=== PATIENT | male | born 1940 | race Caucasian/White ===

== ENCOUNTER → 2023-04-12 | Outpatient (CLI) | payer MEDICARE ==
[2023-04-12 18:44] LABS: HCT 33.1 % (39.6-50.0); HGB 10.8 g/dL (13.0-17.0); MCH 35.5 pg (27.0-32.0); MCHC 32.6 g/dL (32.0-37.0); MCV 108.9 FL (80.0-97.0); Mean Platelet Volume 11.9 FL (9.5-12.2); NRBC Per 100 WBC 0.02 X 10*3/uL (0.00-0.01); Platelet Count 190 X 10*3/uL (140-440); RBC 3.04 X 10*6/uL (4.40-5.60); RDW 18.5 % (11.5-14.5); WBC 3.62 X 10*3/uL (4.50-10.00)
[2023-04-12 20:41] LABS: Blood Urea Nitrogen 15.4 mg/dL (9.0-27.0); Carbon Dioxide 23.9 mmol/L (21.6-31.8); Chloride 108 mmol/L (96-109); Potassium 4.7 mmol/L (3.5-5.5); Sodium 142 mmol/L (135-145)
== END | disposition home or self-care (01) ==
LOC: LABPAT 11:25
PROVIDERS: ATTEND Internal Medicine Clinical Cardiac Electrophysiology
DX: Z01.812 Encounter for preprocedural laboratory examination (principal); I48.0 Paroxysmal atrial fibrillation
CPT/HCPCS: 80051; 82565; 84520; 85027

== ENCOUNTER 2023-04-26 05:46 | Day surgery (SDC) | payer MEDICARE ==
[2023-04-21 12:14] VITALS: BMI 25.5
[2023-04-26] MEDS: SODIUM CHLORIDE 0.9% 1,000 ML IV ONE (06:36)
[2023-04-26] MEDS ORDERED: ePHEDrine 50 MG/ML 1 ML VIAL ONE (07:28)
[2023-04-26] MEDS ORDERED: PHENYLEPHRINE-0.9% NACL SYG 1,000 MCG/10 ML SYRINGE ONE (07:28)
[2023-04-26] MEDS ORDERED: HEPARIN SODIUM,PORCINE 10,000 UNIT/ML 1 ML VIAL ONE (07:28)
[2023-04-26] MEDS ORDERED: LIDOCAINE 1% INJ 10MG/ML (20 ML MDV) ONE ×2 (07:28→07:56)
[2023-04-26] MEDS ORDERED: fentaNYL (PF) 50 MCG/ML 2 ML AMP ONE (07:28)
[2023-04-26] MEDS ORDERED: SUCCINYLCHOLINE CHLORIDE 200 MG/10 ML VIAL IV ONE (07:28)
[2023-04-26] MEDS ORDERED: PROPOFOL 10 MG/ML 20 ML VIAL IV ONE (07:28)
[2023-04-26] MEDS: HEPARIN SOD,PORK IN 0.45% NACL 25,000 UNIT in 0.45% NACL 1 250ML.BAG IV ONE (07:53)
[2023-04-26] MEDS: LIDOCAINE 1% INJ 10MG/ML (20 ML MDV) SQ ONE (08:02)
[2023-04-26 08:14] LABS: ALT 29 U/L (4-49); AST 43 U/L (17-59); African American GFR (CKD) 69 (>60 ml/min/1.73 sqM); Albumin 4.2 g/dL (3.5-5.0); Alkaline Phosphatase 73 U/L (38-126); Anion Gap 10 mmol/L; Blood Urea Nitrogen 21 mg/dL (9-20); Calcium 9.6 mg/dL (8.4-10.2); Carbon Dioxide 24 mmol/L (22-30); Chloride 108 mmol/L (98-107); Glucose 129 mg/dL (74-99); Non-African American GFR(CKD) 60 (>60 ml/min/1.73 sqM); Potassium 4.6 mmol/L (3.5-5.1); Sodium 142 mmol/L (137-145); Total Protein 7.3 g/dL (6.3-8.2)
[2023-04-26] MEDS: IOPAMIDOL-370 100ML BTL INJ ONE (09:47)
--- NOTE | 2023-04-26 10:06 | P.HPCAR ---
History of Present Illness This is Dr. Ham dictating an H/P on this patient The patient was interviewed and examined IMPRESSION / ASSESSMENT: Persistent symptomatic atrial fibrillation with tiredness fatigue and shortness of breath Has failed flecainide and Multaq Normal LV function PLAN: A-fib ablation Continue anticoagulation HPI Remains very short of breath with tiredness fatigue and palpitations He has a preserved LV systolic function and yet is quite short of breath during atrial fibrillation He has failed flecainide and Multaq both ROS: No fever chills or rigors, no cough, phlegm or expectoration, no nausea, vomiting or diarrhea, no hematuria, dysuria, no musculoskeletal complaints, no strokes or seizures, no skin lesions. EXAMINATION: No JVD no hepatojugular reflux Normal heart sounds regular no murmurs Breath sounds are clear No rhonchi no crackles No lower extremity edema REVIEW OF LABS, ECG & MEDICAL DATA Past history of CAD Normal LV function Physical Exam Vitals: Vital Signs Temp Pulse Resp BP Pulse Ox 04/26/23 06:37 97 F L 72 16 109/70 96 Intake and Output 04/25/23 04/26/23 04/26/23 22:59 06:59 14:59 Intake Total 50 727 Balance 50 727 Intake: IV 50 727 Other: Weight 79.8 kg Past Medical History Past Medical History: Atrial Fibrillation, GERD/Reflux, Hyperlipidemia, Hypertension, Osteoarthritis (OA) Additional Past Medical History / Comment(s): RECENT: SOB Pt states SOB with all day and it has gotten worse lately,(POSTITIVE STRESS TEST). MACROCYTIC ANEMIA, please see Dr. Ham's H+P, Pt states difficulty urinating. History of Any Multi-Drug Resistant Organisms: None Reported Past Surgical History: Heart Catheterization, Orthopedic Surgery Additional Past Surgical History / Comment(s): ORTHO: RIGHT SHOULDER (ACCIDENT), LEFT ROTATOR CUFF, LEFT KNEE ARTHRO, COLONOSCOPY, Cardiac cath "was a few years ago." Past Anesthesia/Blood Transfusion Reactions: No Reported Reaction Smoking Status: Former smoker - Past Family History Mother Family Medical History: Neurologic Disorder Additional Family Medical History / Comment(s): ALZHEIMERS Physical Examination Vital Signs Temp Pulse Resp BP Pulse Ox 04/26/23 06:37 97 F L 72 16 109/70 96 Intake and Output 04/25/23 04/26/23 04/26/23 22:59 06:59 14:59 Intake Total 50 727 Balance 50 727 Intake: IV 50 727 Other: Weight 79.8 kg Results 04/26/23 06:12 Cardiac Enzymes 04/26/23 Range/Units 06:12 AST 43 (17-59) U/L Comprehensive Metabolic Panel 04/26/23 Range/Units 06:12 Sodium 142 (137-145) mmol/L Potassium 4.6 (3.5-5.1) mmol/L Chloride 108 H (98-107) mmol/L Carbon Dioxide 24 (22-30) mmol/L BUN 21 H (9-20) mg/dL Creatinine 1.16 (0.66-1.25) mg/dL Glucose 129 H (74-99) mg/dL Calcium 9.6 (8.4-10.2) mg/dL AST 43 (17-59) U/L ALT 29 (4-49) U/L Alkaline Phosphatase 73 (38-126) U/L Total Protein 7.3 (6.3-8.2) g/dL Albumin 4.2 (3.5-5.0) g/dL Current Medications Generic Name Dose Route Start Last Admin Trade Name Freq PRN Reason Stop Dose Admin Sodium Chloride 1,000 mls @ 20 mls/hr 04/26/23 05:51 Saline 0.9% IV 05/26/23 05:52 .Q24H SIVA Lactated Ringer's 1,000 mls @ 20 mls/hr 04/26/23 05:51 Lactated Ringers IV 05/26/23 05:52 .Q24H SIVA Intake and Output 04/25/23 04/26/23 04/26/23 22:59 06:59 14:59 Intake Total 50 727 Balance 50 727 Intake: IV 50 727 Other: Weight 79.8 kg 04/26/23 06:12
--- NOTE | 2023-04-26 10:10 | P.EPPROC ---
- EP Procedure Note Electrophysiology Procedure Note: PROCEDURE A. fib ablation with PVI and linear ablation of the left atrial roof DIAGNOSIS Persistent atrial fibrillation, symptomatic, refractory to therapy despite 2 different drugs RESULT No left atrial appendage mass seen on intracardiac echo, large left atrial appendage, preserved LV systolic function Successful A. fib ablation/pulmonary vein isolation of all veins using cryo- ablation Complete entrance block in all 4 veins confirmed Linear ablation of the left atrial roof with cryoablation resulted in termination of atrial fibrillation to sinus rhythm, mid roof No evidence for phrenic nerve injury Esophageal deflection YES, right-sided esophagus PROCEDURE DETAILS Written informed consent prior to procedure. Patient brought to the EP lab. General anesthesia given. Heparin administered. A city maintained above 300 seconds Both groins prepped and draped per protocol and venous sheaths placed. Esophagus intubated, circa catheter for temperature monitoring an endoscope for possible esophageal deflection. Phrenic nerve monitoring performed. Esophageal temperature monitoring performed. Esophageal deflection performed if circa catheter overlapping with the balloon or circa temperature less than 27.5C Intracardiac echocardiography performed. Pericardium evaluated. Left atrial appendage evaluated. Left atrium evaluated along with pulmonary veins Transseptal catheterization performed under fluoroscopic guidance and intracardiac echo guidance Cryoablation sheath exchanged, balloon catheter along with achieve catheter placed in the left atrium. Pulmonary veins isolated in the following sequence: Left superior pulmonary vein followed by left inferior pulmonary vein, followed by right inferior pulmonary vein and lastly right superior pulmonary vein. Phrenic nerve stimulation along with capture thresholds within the SVC and right superior pulmonary vein to identify the phrenic nerve proximity to the cryo- balloon. Pulmonary veins isolated and confirmed with entrance and exit block. Phrenic nerve integrity confirmed at the end of the procedure Ablation of the left atrial roof performed with sequential lesions from the left superior to the right superior pulmonary veins. When the final cryoablation was applied and the roof, termination of atrial fibrillation occurred Diagnostic catheters for the high right atrium, His bundle, coronary sinus placed. LA and RA pressures recorded RA pressure: 105/7 LA pressure: 17/3/10 Diagnostic EP study with coronary sinus pacing and recording after termination of atrial fibrillation during roofline Baseline measurements: Sinus cycle length 840 ms, ID interval 198 ms, QRS 159 ms with a right bundle branch block morphology and QT interval 476 ms AH 95 and HV 43 ms Venous sheaths were removed and hemostasis assured with a closure device. Patient extubated and transferred to recovery PROCEDURES PERFORMED Diagnostic EP study CS pacing and recording Left and right transseptal catheterization Catheter the mapping of the tachycardia Intracardiac echocardiography Pulmonary vein isolation with transseptal and comprehensive EPS, [id number] Left atrial roof line, +[id number]
[2023-04-26] MEDS: ACETAMINOPHEN IV (For NPO) 1,000 MG/100 ML VIAL IVPB ONE (11:50)
[2023-04-26] MEDS: ONDANSETRON 4 MG/2 ML VIAL IVP ONE (11:52)
[2023-04-26] MEDS: ACETAMINOPHEN IV (For NPO) 1,000 MG in EMPTY BAG 1 BAG IVPB ONE (13:49)
[2023-04-26] MEDS: SODIUM CHLORIDE 0.9% 500 ML 250 ML IV ONE (14:54)
[2023-04-26] MEDS: SODIUM CHLORIDE 0.9% 1,000 ML IV SCH (19:36)
[2023-04-26] MEDS: LACTATED RINGERS 1,000 ML IV SCH (19:36)
[2023-04-26] MEDS: ATORVASTATIN 40 MG TAB PO SCH (21:03)
[2023-04-27] MEDS: ACETAMINOPHEN TAB 325 MG TAB PO PRN (01:12)
[2023-04-27 07:47] VITALS: BP 126/76; PULSE 74; RESP 20; TEMP 97.7
[2023-04-27] MEDS: METOPROLOL TARTRATE 12.5 MG TAB PO SCH (08:51)
[2023-04-27] MEDS: TAMSULOSIN 0.4 MG CAP.ER.24H PO SCH (08:51)
[2023-04-27] MEDS: RIVAROXABAN 20 MG TAB PO SCH (08:57)
--- NOTE | 2023-04-27 10:33 | P.DS ---
Providers Attending physician: Victor Hugo Ham Primary care physician: [facility] Course: Patient is doing well No dizziness lightheadedness Lungs are clear no rhonchi no crackles Normal heart sounds normal S1 normal S2 Abdomen is soft Groins of healed well Impression Persistent symptomatic atrial fibrillation Status post ablation of the pulmonary veins and left atrial roof Termination of atrial fibrillation during ablation of the left atrial roof Currently on Xarelto 20 mg p.o. daily and low-dose beta-blockers along with atorvastatin Known CAD status post stenting in the past Low normal LV systolic function Plan in view of the interaction with Multaq and Xarelto I will hold Multaq for now He will see Dr. Baldwin in the next 7 to 10 days and we will monitor him for any recurrence of atrial fibrillation Stable for discharge today Plan - Discharge Summary Discharge Rx Participant: No New Discharge Prescriptions: No Action Atorvastatin [Lipitor] 40 mg PO HS Metoprolol Tartrate 12.5 mg PO BID Multivitamins, Thera [Multivitamin] 1 tab PO DAILY Omeprazole [PriLOSEC] 20 mg PO QAM Tamsulosin [Flomax] 0.4 mg PO DAILY Rivaroxaban [Xarelto] 20 mg PO DAILY Dronedarone [Multaq] 400 mg PO AC-BID Acetaminophen [Tylenol Extra Strength] 1,000 mg PO Q8H PRN PRN Reason: Pain Discharge Medication List Atorvastatin [Lipitor] 40 mg PO HS 08/15/15 [History] Metoprolol Tartrate 12.5 mg PO BID 08/15/15 [History] Multivitamins, Thera [Multivitamin] 1 tab PO DAILY 08/15/15 [History] Omeprazole [PriLOSEC] 20 mg PO QAM 08/15/15 [History] Dronedarone [Multaq] 400 mg PO AC-BID 04/10/22 [History] Tamsulosin [Flomax] 0.4 mg PO DAILY 04/10/22 [History] Acetaminophen [Tylenol Extra Strength] 1,000 mg PO Q8H PRN 04/21/23 [History] Rivaroxaban [Xarelto] 20 mg PO DAILY 04/21/23 [History] Follow up Appointment(s)/Referral(s): Wesley Baldwin MD [STAFF PHYSICIAN] - 05/05/23 2:15 pm (Appointment made with Bridgett ) Cisco Pedraza DO [Primary Care Provider] - 05/21/23 Patient Instructions/Handouts: How to Use an Incentive Spirometer (DC)
== END 2023-04-27 11:45 | disposition home or self-care (01) ==
LOC: CATHEP 05:46 → 6NMEDSUR 09:47 → CATHEP 04-27 11:45
PROVIDERS: ATTEND Internal Medicine Clinical Cardiac Electrophysiology
DX: I48.19 Other persistent atrial fibrillation (principal); I25.10 Atherosclerotic heart disease of native coronary artery without angina pectoris; M19.90 Unspecified osteoarthritis, unspecified site; E78.5 Hyperlipidemia, unspecified; I10 Essential (primary) hypertension; K21.9 Gastro-esophageal reflux disease without esophagitis; D53.9 Nutritional anemia, unspecified; Z98.890 Other specified postprocedural states; Z87.891 Personal history of nicotine dependence; Z79.899 Other long term (current) drug therapy
CPT/HCPCS: 93656; 93657; 86900; 86901; 80053; 84443; 86850; C1894 ×2; C1769 ×3; C1760; C1730 ×2; C1759; C1893; C1733; C1766; J2405; J2001; J0131; Q9967; J1644

== ENCOUNTER 2024-01-12 07:20 | Day surgery (SDC) | payer MEDICARE ==
[~2024-01-12 07:20] MED LIST: LIDOCAINE 1% (10MG/ML) FOR IV START INTRADERMA PRN
[2024-01-12 07:53] VITALS: TEMP 97.6
[2024-01-12] MEDS: LACTATED RINGERS 1,000 ML IV SCH (07:57)
[2024-01-12] MEDS: IV FLUID CONTINUATION 1,000 ML IV ONE (07:57)
[2024-01-12] MEDS ORDERED: PROPOFOL 10 MG/ML 20 ML VIAL IV ONE (08:34)
--- NOTE | 2024-01-12 09:04 | P.PCN ---
Date of Procedure: 01/12/24 Procedure(s) Performed: BRIEF HISTORY: Patient is a 83-year-old pleasant white male scheduled for an elective colonoscopy as a part of evaluation positive Cologuard/screening for colon cancer. PROCEDURE PERFORMED: Colonoscopy with snare polypectomy. PREOPERATIVE DIAGNOSIS: Positive Cologuard/screening for colon cancer. IV sedation per Anesthesia. PROCEDURE: After informed consent was obtained, the patient, was brought into the endoscopy unit. IV sedation was administered by Anesthesia under continuous monitoring. Digital rectal examination was normal. Initially the Olympus CF-160 flexible video colonoscope was then inserted in the rectum, gradually advanced into the cecum without any difficulty. Careful examination was performed as the scope was gradually being withdrawn. Ileocecal valve and the appendiceal orifice were visualized and appeared normal. Prep was excellent. Mucosa of the cecum, ascending colon, appeared normal. In the hepatic flexure there was a 2 cm broad-based polyp removed by snare polypectomy. In the transverse colon there was a 1 cm and 1.5 cm broad-based polyp removed by snare polypectomy. Rest of the transverse colon, descending colon, sigmoid colon, and rectum appeared normal. Scattered sigmoid diverticulosis. Retroflexion was performed in the rectum and grade 2 internal were seen. The patient tolerated the procedure well. IMPRESSION: 2 cm broad-based hepatic rectal polyp status post snare polypectomy 1 cm and 1.5 cm broad-based transverse colon polyp status post polypectomy Scattered sigmoid diverticulosis Grade 2 internal hemorrhoids RECOMMENDATIONS: Findings of this examination were discussed with the patient as well as his family. He was advised to follow-up with the biopsy results. If the biopsy reveals adenoma he can have repeat colonoscopy in 3 years..
[2024-01-12 09:31] VITALS: BP 116/71; PULSE 66; RESP 20
== END 2024-01-12 09:35 | disposition home or self-care (01) ==
LOC: ORWHC2ENDO 07:20
PROVIDERS: ATTEND Internal Medicine Gastroenterology
DX: Z12.11 Encounter for screening for malignant neoplasm of colon (principal); D12.3 Benign neoplasm of transverse colon; R19.5 Other fecal abnormalities; K57.30 Diverticulosis of large intestine without perforation or abscess without bleeding; K64.1 Second degree hemorrhoids; Z79.899 Other long term (current) drug therapy
CPT/HCPCS: 88305; 45385; J2704

== ENCOUNTER → 2024-07-08 | Outpatient (CLI) | payer MEDICARE ==
[2024-07-08 14:06] LABS: HCT 33.2 % (39.6-50.0); HGB 10.6 g/dL (13.0-17.0); MCH 34.2 pg (27.0-32.0); MCHC 31.9 g/dL (32.0-37.0); MCV 107.1 FL (80.0-97.0); Mean Platelet Volume 12.2 FL (9.5-12.2); NRBC Per 100 WBC 0.02 X 10*3/uL (0.00-0.01); Platelet Count 170 X 10*3/uL (140-440); RDW 19.9 % (11.5-14.5)
[2024-07-08 14:21] LABS: ALT 19 U/L (10-49); AST 24 U/L (14-35); Albumin 4.2 g/dL (3.8-4.9); Albumin/Globulin Ratio 1.83 Ratio (1.60-3.17); Alkaline Phosphatase 69 U/L (41-126); Blood Urea Nitrogen 16.7 mg/dL (9.0-27.0); Calcium 9.4 mg/dL (8.7-10.3); Carbon Dioxide 27.1 mmol/L (21.6-31.8); Chloride 104 mmol/L (96-109); Globulin 2.3 g/dL (1.6-3.3); Glucose 107 mg/dL (70-110); Potassium 4.3 mmol/L (3.5-5.5); Sodium 141 mmol/L (135-145); Total Bilirubin 1.1 mg/dL (0.3-1.2); Total Protein 6.5 g/dL (6.2-8.2)
[2024-07-08 15:52] LABS: Basophils # (A) 0 X 10*3/uL (0.00-0.10); Basophils % (A) 0 %; Elliptocytes 2+ (None Seen); Eosinophils # (A) 0 X 10*3/uL (0.04-0.35); Eosinophils % (A) 0 %; Lymphocytes # (A) 0.73 X 10*3/uL (0.90-5.00); Lymphocytes % (A) 25.2 %; Macrocytosis (M) 2+ (None Seen); Monocytes % (A) 13.8 %; Neutrophils # (A) 1.75 X 10*3/uL (1.80-7.70); Neutrophils % (A) 60.3 %
== END | disposition home or self-care (01) ==
LOC: LABWHC1 10:23
PROVIDERS: ATTEND Physician Assistant
DX: R53.1 Weakness (principal)
CPT/HCPCS: 36415; 80053; 85025

== ENCOUNTER 2024-09-14 21:57 | Inpatient (IN) | payer MEDICARE ==
--- NOTE | 2024-09-14 22:46 | ED ---
General Adult HPI - General Chief complaint: Recheck/Abnormal Lab/Rx Stated complaint: Abnormal Labs Time Seen by Provider: 09/14/24 22:07 Source: patient Mode of arrival: ambulatory Limitations: no limitations - History of Present Illness Initial comments: This patient is an 84-year-old man who states that he received a phone call telling him he should be evaluated in the emergency department. This was in relation to an MRI that he had had earlier in the day. The patient and explained that they had been concerned about the possibility of developing dementia and therefore they had seen the neurologist who had ordered the MRI. They went for that test and then had gone home and received a call telling them to come to the emergency department. The patient is denying any new neurologic symptoms. He is denying focal weakness, numbness, change in vision, speech, swallowing. Patient reported with history of previous A-fib currently taking Xarelto. Review of the records shows that the patient did have MRI today interpreted as showing few bilateral frontal area areas of concern for possible acute/subacute embolic events. Onset/Timin -: hour(s) Improves with: none Worsens with: none Associated Symptoms: denies other symptoms Treatments Prior to Arrival: none - Related Data Home Medications Medication Instructions Recorded Confirmed Atorvastatin [Lipitor] 40 mg PO HS 08/15/15 09/15/24 Multivitamins, Thera [Multivitamin 1 tab PO DAILY 08/15/15 09/15/24 (formulary)] Tamsulosin [Flomax] 0.4 mg PO HS 04/10/22 09/15/24 Epoetin Julian [Procrit] 40,000 unit INJ Q14D 09/15/24 09/15/24 Mirtazapine [Remeron] 15 mg PO HS 09/15/24 09/15/24 Omeprazole Magnesium [PriLOSEC OTC] 20 mg PO DAILY 09/15/24 09/15/24 Previous Rx's Medication Instructions Recorded Apixaban [Eliquis] 5 mg PO BID #90 tab 09/16/24 Psyllium Husk 100% [Metamucil 6 gm PO BID #60 packet 09/16/24 Packet] Allergies Allergy/AdvReac Type Severity Reaction Status Date / Time No Known Allergies Allergy Verified 09/15/24 09:47 Review of Systems ROS Statement: Those systems with pertinent positive or pertinent negative responses have been documented in the HPI. ROS Other: All systems not noted in ROS Statement are negative. Constitutional: Denies: fever, chills, weakness Eyes: Denies: vision change ENT: Denies: hearing loss Respiratory: Denies: cough, dyspnea Cardiovascular: Denies: chest pain, palpitations, edema, syncope Gastrointestinal: Denies: abdominal pain, vomiting, diarrhea Genitourinary: Denies: dysuria, hematuria Musculoskeletal: Denies: back pain Skin: Denies: rash Neurological: Reports: confusion (Intermittent). Denies: headache, weakness, numbness Past Medical History Past Medical History: Atrial Fibrillation, GERD/Reflux, Hyperlipidemia, Osteoarthritis (OA) Additional Past Medical History / Comment(s): RECENT: SOB, ESPECIALLY AT NIGHT (POSTITIVE STRESS TEST). MACROCYTIC ANEMIA History of Any Multi-Drug Resistant Organisms: None Reported Past Surgical History: Heart Catheterization, Orthopedic Surgery Additional Past Surgical History / Comment(s): ORTHO: RIGHT SHOULDER (ACCIDENT), LEFT ROTATOR CUFF, LEFT KNEE ARTHRO, COLONOSCOPY, Past Anesthesia/Blood Transfusion Reactions: No Reported Reaction Past Psychological History: No Psychological Hx Reported Smoking Status: Former smoker - Past Family History Mother Family Medical History: Neurologic Disorder Additional Family Medical History / Comment(s): ALZHEIMERS General Exam Limitations: no limitations General appearance: alert, in no apparent distress Head exam: Present: atraumatic, normocephalic Eye exam: Present: normal appearance. Absent: scleral icterus, conjunctival injection ENT exam: Present: normal oropharynx Neck exam: Present: normal inspection Respiratory exam: Present: normal lung sounds bilaterally. Absent: respiratory distress, wheezes, rales, rhonchi, stridor, accessory muscle use Cardiovascular Exam: Present: regular rate, normal rhythm, normal heart sounds. Absent: systolic murmur, diastolic murmur, rubs, gallop GI/Abdominal exam: Present: soft. Absent: distended, tenderness, guarding, rebound, rigid, mass Extremities exam: Present: normal inspection, normal capillary refill. Absent: pedal edema, calf tenderness Back exam: Present: normal inspection. Absent: CVA tenderness (R), CVA tenderness (L) Neurological exam: Present: alert, oriented X3, CN II-XII intact, other (Tremor). Absent: motor sensory deficit Skin exam: Present: warm, dry, intact, normal color. Absent: rash Course Vital Signs 09/14/24 09/15/24 09/15/24 21:58 02:00 03:00 Temperature 98.2 F Pulse Rate 64 73 69 Pulse Rate [ Screedman/Laborer ] Respiratory 18 18 20 Rate Blood Pressure 142/83 112/67 109/68 Blood Pressure [Left Arm] O2 Sat by Pulse 96 97 95 Oximetry 09/15/24 09/15/24 09/15/24 05:00 06:00 07:53 Temperature 98.3 F 97.9 F Pulse Rate 71 93 72 Pulse Rate [ Screedman/Laborer ] Respiratory 18 18 18 Rate Blood Pressure 114/73 137/79 127/81 Blood Pressure [Left Arm] O2 Sat by Pulse 95 96 97 Oximetry 09/15/24 09/15/24 09/15/24 10:10 12:35 16:13 Temperature Pulse Rate 75 86 84 Pulse Rate [ Screedman/Laborer ] Respiratory 20 18 20 Rate Blood Pressure 144/78 127/82 132/89 Blood Pressure [Left Arm] O2 Sat by Pulse 97 96 Oximetry 09/15/24 09/15/24 09/16/24 18:35 19:52 00:00 Temperature 97.9 F 98.6 F 97.9 F Pulse Rate 92 Pulse Rate [ 94 81 Screedman/Laborer ] Respiratory 22 18 18 Rate Blood Pressure 128/77 Blood Pressure 99/78 107/69 [Left Arm] O2 Sat by Pulse 97 99 98 Oximetry 09/16/24 09/16/24 04:00 11:38 Temperature 98.4 F Pulse Rate 80 Pulse Rate [ 92 Screedman/Laborer ] Respiratory 20 14 Rate Blood Pressure 133/86 Blood Pressure 122/77 [Left Arm] O2 Sat by Pulse 96 97 Oximetry EKG Findings - EKG Results: EKG: interpreted by ERMD, sinus rhythm (Rate 82 bpm) - Blocks, [place], Hypertrophy, ST Abn: AV and intraventricular conduction: right bundle branch block (fixed/intermittent, complete/incomplete), left anterior fascicular block - ND, Pacemaker, Normal: Myocardial infarction: septal ND (old age or indeterminate) (Possible old septal infarct) Medical Decision Making - Medical Decision Making Medical reconciliation completed. The patient states that he was taken off of metoprolol 2 days ago now. The patient had chest x-ray that I interpreted as negative for acute infiltrate, pneumothorax, congestive heart failure Was pt. sent in by a medical professional or institution (MARICEL Ocampo, DINING SERVICES MANAGER, urgent care, hospital, or senior care...) When possible be specific @ -Yes the patient received a phone call instructing him to have further evaluation and treatment related to MRI Did you speak to anyone other than the patient for history (EMS, parent, family, police, friend...)? What history was obtained from this source @ -[The patient's gave additional history Did you review nursing and triage notes (agree or disagree)? Why? @ -[I reviewed and agree with nursing and triage notes] Were old charts reviewed (outside hosp., previous admission, EMS record, old EKG, old radiological studies, urgent care reports/EKG's, senior care records)? Report findings @ -[Yes, old charts were reviewed] Differential Diagnosis (chest pain, altered mental status, abdominal pain women, abdominal pain men, vaginal bleeding, weakness, fever, dyspnea, syncope, headache, dizziness, GI bleed, back pain, seizure, CVA, palpatations, mental health, musculoskeletal)? @ -Differential CVA Ischemic stroke, hemorrhagic stroke, brain tumor, atypical migraine, Wernicke's encephalopathy, seizure, multiple sclerosis, meningitis, encephalitis, hypoglycemia, Guillain-Reese, electrolytes disturbance, myasthenia gravis.... This is not meant to be an all-inclusive list EKG interpreted by me (3pts min.). @ -[I interpreted as above] X-rays interpreted by me (1pt min.). @ -[I interpreted as above CT interpreted by me (1pt min.). @ -[None done] U/S interpreted by me (1pt. min.). @ -[None done] What testing was considered but not performed or refused? (CT, X-rays, U/S, labs)? Why? @ -[None] What meds were considered but not given or refused? Why? @ -[None] Did you discuss the management of the patient with other professionals (lacy yeboah i.e. MARICEL Ocampo, DINING SERVICES MANAGER, lab, RT, psych nurse, social welfare administrator, shock absorber installer, teacher, tactical debriefer officer, disease case manager rn)? Give summary @ -[Case discussed with admitting physician and treatment recommendations I ncorporated Was smoking cessation discussed for >3mins.? @ -[No] Was critical care preformed (if so, how long)? @ -[No] Were there social determinants of health that impacted care today? How? (Homel essness, low income, unemployed, alcoholism, drug addiction, transportation, low edu. Level, literacy, decrease access to med. care, longterm, rehab)? @ -[No] Was there de-escalation of care discussed even if they declined (Discuss DNR or withdrawal of care, Hospice)? DNR status @ -[No] What co-morbidities impacted this encounter? (DM, HTN, Smoking, COPD, CAD, Cancer, CVA, ARF, Chemo, Hep., AIDS, mental health diagnosis, sleep apnea, morbid obesity)? @ -[Dementia, atrial fibrillation status post ablation Was patient admitted / discharged? Hospital course, mention meds given and route, prescriptions, significant lab abnormalities, going to OR and other pertinent info. @ -[Patient is 84-year-old man with recent MRI with abnormality. Patient not describing acute strokelike symptoms, but admitted to have further neurology evaluation and treatment. Undiagnosed new problem with uncertain prognosis? @ -[No] Drug Therapy requiring intensive monitoring for toxicity (Heparin, Nitro, Insulin, Cardizem)? @ -[No] Were any procedures done? @ -[No] Diagnosis/symptom? @ -[Abnormal MRI result Suspected thromboembolic phenomenon Possible subacute ischemic stroke Acute, or Chronic, or Acute on Chronic? @ -[Acute Uncomplicated (without systemic symptoms) or Complicated (systemic symptoms)? @ -[Uncomplicated Side effects of treatment? @ -[No] Exacerbation, Progression, or Severe Exacerbation? @ -[No] Poses a threat to life or bodily function? How? (Chest pain, USA, ND, pneumonia, PE, COPD, DKA, ARF, appy, cholecystitis, CVA, Diverticulitis, Homicidal, Suicidal, threat to staff... and all critical care pts) @ -[Yes, requires further neurology evaluation and treatment All treatments are based on ideal body weight as in ED triage - Lab Data Result diagrams: 09/14/24 22:38 09/14/24 22:38 Lab Results 09/14/24 09/14/24 09/14/24 Range/Units 22:38 22:38 22:38 WBC 3.67 L (4.50-10.00) 10*3/uL RBC 2.94 L (4.40-5.60) 10*6/uL Hgb 10.5 L (13.0-17.0) g/dL Hct 31.1 L (39.6-50.0) % MCV 105.8 H (80.0-97.0) fL MCH 35.7 H (27.0-32.0) pg MCHC 33.8 (32.0-37.0) g/dL Plt Count 172 (140-440) 10*3/uL MPV 11.5 (9.5-12.2) fL Immature Gran % (Auto) 0.3 % Neutrophils % 56.9 % Lymphocytes % 31.9 % Monocytes % 10.6 % Eosinophils % 0.0 % Basophils % 0.3 % Immature Gran # 0.01 (0.00-0.04) 10*3/uL Neutrophils # 2.09 (1.80-7.70) 10*3/uL Lymphocytes # 1.17 (0.90-5.00) 10*3/uL Monocytes # 0.39 (0.20-1.00) 10*3/uL Eosinophils # 0.00 L (0.04-0.35) 10*3/uL Basophils # 0.01 (0.00-0.10) 10*3/uL Manual Slide Review Performed Fragmented RBCs Present PT 10.9 (10.0-12.5) sec INR 1.0 (<1.2) APTT 24.9 (22.0-30.0) sec Sodium 139 (137-145) mmol/L Potassium 4.4 (3.5-5.1) mmol/L Chloride 102 (98-107) mmol/L Carbon Dioxide 25 (22-30) mmol/L Anion Gap 12 mmol/L BUN 22 H (9-20) mg/dL Creatinine 1.10 (0.66-1.25) mg/dL Est GFR (CKD-EPI)AfAm 72 (>60 ml/min/1.73 sqM) Est GFR (CKD-EPI)NonAf 62 (>60 ml/min/1.73 sqM) Glucose 111 H (74-99) mg/dL Estimated Ave Glu mg/dL mg/dL Hemoglobin A1c (<=6.0) % Calcium 9.3 (8.4-10.2) mg/dL Total Bilirubin 1.4 H (0.2-1.3) mg/dL AST 28 (17-59) U/L ALT 17 (4-49) U/L Alkaline Phosphatase 79 (38-126) U/L Creatine Kinase 56 (55-170) U/L Troponin I (0.000-0.034) ng/mL Total Protein 7.1 (6.3-8.2) g/dL Albumin 4.3 (3.5-5.0) g/dL Folate (4.40-31.00) ng/mL 09/14/24 09/14/24 09/14/24 Range/Units 22:38 22:38 22:38 WBC (4.50-10.00) 10*3/uL RBC (4.40-5.60) 10*6/uL Hgb (13.0-17.0) g/dL Hct (39.6-50.0) % MCV (80.0-97.0) fL MCH (27.0-32.0) pg MCHC (32.0-37.0) g/dL Plt Count (140-440) 10*3/uL MPV (9.5-12.2) fL Immature Gran % (Auto) % Neutrophils % % Lymphocytes % % Monocytes % % Eosinophils % % Basophils % % Immature Gran # (0.00-0.04) 10*3/uL Neutrophils # (1.80-7.70) 10*3/uL Lymphocytes # (0.90-5.00) 10*3/uL Monocytes # (0.20-1.00) 10*3/uL Eosinophils # (0.04-0.35) 10*3/uL Basophils # (0.00-0.10) 10*3/uL Manual Slide Review Fragmented RBCs PT (10.0-12.5) sec INR (<1.2) APTT (22.0-30.0) sec Sodium (137-145) mmol/L Potassium (3.5-5.1) mmol/L Chloride (98-107) mmol/L Carbon Dioxide (22-30) mmol/L Anion Gap mmol/L BUN (9-20) mg/dL Creatinine (0.66-1.25) mg/dL Est GFR (CKD-EPI)AfAm (>60 ml/min/1.73 sqM) Est GFR (CKD-EPI)NonAf (>60 ml/min/1.73 sqM) Glucose (74-99) mg/dL Estimated Ave Glu mg/dL 120 mg/dL Hemoglobin A1c 5.8 (<=6.0) % Calcium (8.4-10.2) mg/dL Total Bilirubin (0.2-1.3) mg/dL AST (17-59) U/L ALT (4-49) U/L Alkaline Phosphatase (38-126) U/L Creatine Kinase (55-170) U/L Troponin I <0.012 (0.000-0.034) ng/mL Total Protein (6.3-8.2) g/dL Albumin (3.5-5.0) g/dL Folate 32.90 H (4.40-31.00) ng/mL Disposition Clinical Impression: Embolic stroke Disposition: ADMITTED IP TO THIS [facility] Condition: Good Is patient prescribed a controlled substance at d/c from ED?: No
[2024-09-14 22:49] LABS: Basophils # (A) 0.01 10*3/uL (0.00-0.10); Basophils % (A) 0.3 %; Eosinophils # (A) 0.00 10*3/uL (0.04-0.35); Eosinophils % (A) 0.0 %; HCT 31.1 % (39.6-50.0); HGB 10.5 g/dL (13.0-17.0); Lymphocytes # (A) 1.17 10*3/uL (0.90-5.00); Lymphocytes % (A) 31.9 %; MCH 35.7 pg (27.0-32.0); MCHC 33.8 g/dL (32.0-37.0); MCV 105.8 fL (80.0-97.0); Monocytes # (A) 0.39 10*3/uL (0.20-1.00); Monocytes % (A) 10.6 %; Neutrophils # (A) 2.09 10*3/uL (1.80-7.70); Neutrophils % (A) 56.9 %; Platelet Count 172 10*3/uL (140-440); RBC 2.94 10*6/uL (4.40-5.60); RDW 19.9 % (11.5-14.5); WBC 3.67 10*3/uL (4.50-10.00)
[2024-09-14 23:03] LABS: ALT 17 U/L (4-49); AST 28 U/L (17-59); African American GFR (CKD) 72 (>60 ml/min/1.73 sqM); Albumin 4.3 g/dL (3.5-5.0); Alkaline Phosphatase 79 U/L (38-126); Anion Gap 12 mmol/L; Blood Urea Nitrogen 22 mg/dL (9-20); Calcium 9.3 mg/dL (8.4-10.2); Carbon Dioxide 25 mmol/L (22-30); Chloride 102 mmol/L (98-107); Creatine Kinase 56 U/L (55-170); Glucose 111 mg/dL (74-99); Non-African American GFR(CKD) 62 (>60 ml/min/1.73 sqM); Potassium 4.4 mmol/L (3.5-5.1); Sodium 139 mmol/L (137-145); Total Protein 7.1 g/dL (6.3-8.2)
[2024-09-14 23:43] LABS: INR 1.0 (<1.2); Partial Thromboplastin Time 24.9 sec (22.0-30.0); Prothrombin Time 10.9 sec (10.0-12.5)
[2024-09-15] MEDS: ASPIRIN 325 MG TAB PO STA (01:08)
[2024-09-15] MEDS: SODIUM CHLORIDE 0.9% 1,000 ML IV SCH (01:15)
[2024-09-15 02:00] LABS: RBC Fragments Present
--- NOTE | 2024-09-15 07:20 | XR ---
EXAMINATION TYPE: XR chest 2V DATE OF EXAM: 09/14/2024 10:57 PM COMPARISON: None CLINICAL INDICATION: Male, 84 years old with history of altered mental status; [facility] TECHNIQUE: XR chest 2V Frontal and lateral views of the chest. FINDINGS: Lungs/Pleura: Increased airspace opacities in the left lung base. There is no evidence of pleural eff usion, focal consolidation, or pneumothorax. Pulmonary vascularity: Unremarkable. Heart/mediastinum: Cardiomediastinal silhouette is unremarkable. Musculoskeletal: No acute osseous pathology. Fixation changes in the right clavicle. Other findings: None IMPRESSION: Left lower lobe airspace opacities correlate for developing pneumonia.[facility], , 09/15/2024 7:17 AM
[2024-09-15] MEDS: DOCUSATE 100 MG CAP PO SCH (08:17)
[2024-09-15] MEDS: PANTOPRAZOLE 40 MG TABLET PO SCH ×2 (08:17→12:18)
[2024-09-15] MEDS: FAMOTIDINE 20 MG TAB PO SCH (08:17)
[2024-09-15] MEDS: RIVAROXABAN 20 MG TAB PO SCH (08:17)
[2024-09-15] MEDS: ACETAMINOPHEN TAB 325 MG TAB PO STA (10:58)
--- NOTE | 2024-09-15 11:25 | XR ---
EXAMINATION TYPE: XR abdomen 2V DATE OF EXAM: 09/15/2024 11:19 AM COMPARISON: None CLINICAL INDICATION: Male, 84 years old with history of RLQ pain; [facility] TECHNIQUE: Two views of the abdomen were obtained. FINDINGS: Moderate amount stool throughout the colon. The bowel gas pattern is nonspecific without d ilated loops of small or large bowel. . Fecal material and gas are demonstrated throughout the colon and rectum. There is no evidence for organomegaly or pneumoperitoneum. No evidence of fracture. Mult ilevel degeneration changes spine with osteophyte formation and disc space narrowing. Mild degenerati on changes of the hips with osteophyte information joint space narrowing. No abnormal calcificati ons are present. IMPRESSION: Nonspecific bowel gas pattern without radiographic evidence for acute process. [facility], , 09/15/2024 11:23 AM
--- NOTE | 2024-09-15 12:41 | CA ---
Transthoracic Echo Report Name: Maxwell Thakur Age: 84 Gender: M : 1940 Exam Date: 09/15/2024 10:28 Exam Location: [facility] Ht (in): 70 Wt (lb): 168 Ordering Physician: Teto Pascual MD Attending/Referring Phys: Team Driver Mona Wall RDCS Procedure CPT: Indications: possible embolic stroke Cardiac Hx: Technical Quality: Good Contrast 1: Total Dose (mL): Contrast 2: Total Dose (mL): MEASUREMENTS (Male / Female) Normal Values 2D ECHO LV Diastolic Diameter PLAX 5.3 cm 4.2 - 5.9 / 3.9 - 5.3 cm LV Systolic Diameter PLAX 3.6 cm IVS Diastolic Thickness 0.9 cm 0.6 - 1.0 / 0.6 - 0.9 cm LVPW Diastolic Thickness 1.0 cm 0.6 - 1.0 / 0.6 - 0.9 cm LV Relative Wall Thickness 0.4 RV Internal Dim ED PLAX 3.7 cm LA Systolic Diameter LX 3.6 cm 3.0 - 4.0 / 2.7 - 3.8 cm LV Diastolic Volume MOD BP 95.6 cm??? 67 - 155 / 56 - 104 cm??? LV Systolic Volume MOD BP 57.2 cm??? 22 - 58 / 19 - 49 cm??? LV Ejection Fraction MOD BP 40.1 % >= 55 % LV Cardiac Index MOD BP 1518.6 cm???/min???m??? LV Diastolic Volume MOD 4C 94.7 cm??? LV Systolic Volume MOD 4C 42.4 cm??? LV Ejection Fraction MOD 4C 55.2 % LV Cardiac Index MOD 4C 2068.3 cm???/min???m??? LV Diastolic Length 4C 7.9 cm LV Systolic Length 4C 6.5 cm LV Diastolic Volume MOD 2C 96.7 cm??? LV Systolic Volume MOD 2C 60.8 cm??? LV Ejection Fraction MOD 2C 37.1 % LV Cardiac Index MOD 2C 1419.9 cm???/min???m??? LV Diastolic Length 2C 6.8 cm LV Systolic Length 2C 6.6 cm M-MODE Aortic Root Diameter MM 4.3 cm LA Systolic Diameter MM 2.7 cm LA Ao Ratio MM 0.6 DOPPLER AV Peak Velocity 142.3 cm/s AV Peak Gradient 8.1 mmHg AV Mean Velocity 113.1 cm/s AV Mean Gradient 5.5 mmHg AV Velocity Time Integral 35.5 cm AI Peak Velocity 427.8 cm/s AI Peak Gradient 73.2 mmHg AI Pressure Half Time 746.5 ms Mitral E Point Velocity 85.3 cm/s Mitral A Point Velocity 91.8 cm/s Mitral E to A Ratio 0.9 MV Deceleration Time 181.3 ms MV E' Velocity 6.3 cm/s Mitral E to MV E' Ratio 13.6 TR Peak Velocity 265.5 cm/s TR Peak Gradient 28.2 mmHg Right Ventricular Systolic Press 38.2 mmHg FINDINGS Left Ventricle Left ventricular ejection fraction is estimated at 50 %. Left ventricular cavity size normal. Left ventricular wall thickness normal. Right Ventricle Mild right ventricular dilatation. Mild pulmonary hypertension. Right Atrium Normal right atrial size. No right atrial thrombus or mass seen. Left Atrium Normal left atrial size. No left atrial thrombus or mass present. Mitral Valve Structurally normal mitral valve. Trace mitral regurgitation. Aortic Valve Trileaflet aortic valve. [id number] aortic regurgitation. Tricuspid Valve Structurally normal tricuspid valve. Mild tricuspid regurgitation. Pulmonic Valve Structurally normal pulmonic valve. No pulmonic regurgitation. Pericardium No pericardial effusion. Aorta Moderate aortic dilatation at the level of the sinuses of valsalva (root). CONCLUSIONS Left ventricular ejection fraction 50% RVSP 38 Mild to moderate aortic regurgitation No pericardial effusion Previewed by: Dr. Daniel Stephens DO (Electronically Signed) Final Date: 15 September 2024 12:40
[2024-09-15] MEDS: MULTIVITAMINS, THERA 1 EACH TAB PO SCH (12:51)
--- NOTE | 2024-09-15 13:21 | US ---
EXAMINATION TYPE: US carotid duplex BILAT DATE OF EXAM: 09/15/2024 COMPARISON: CLINICAL INDICATION: Male, 84 years old with history of Slurred speech; Abnormal MRI Additional History: .... TECHNIQUE: Grayscale, color Doppler and spectral Doppler evaluation of the bilateral carotid systems and vertebral arteries. Indirect Doppler criteria was utilized. FINDINGS: EXAM MEASUREMENTS: RIGHT: Peak Systolic Velocity (PSV) cm/sec ----- Right CCA: 51.4 ----- Right ICA: 74.6 ----- Right ECA: 71.3 ICA/CCA ratio: 1.5 RIGHT: End Diastole cm/sec ----- Right CCA: 9.5 ----- Right ICA: 19.7 ----- Right ECA: 14.9 LEFT: Peak Systolic Velocity (PSV) cm/sec ----- Left CCA: 58.1 ----- Left ICA: 84.2 ----- Left ECA: 82.0 ICA/CCA ratio: 1.4 LEFT: End Diastole cm/sec ----- Left CCA: 8.7 ----- Left ICA: 30.3 ----- Left ECA: 8.4 VERTEBRALS (direction of flow): Right Vertebral: Antegrade Left Vertebral: Antegrade Rhythm: Arrhythmia DISPENSING OPTICIAN NOTES: No elevated velocities. Plaque seen in bilateral bulbs and CCAs. Bilateral wall th ickening. Color Doppler imaging shows patency with blood flow throughout the carotid artery. Spectral waveforms are within normal limits. IMPRESSION: Right: Less than 50% stenosis of the carotid bifurcation. Left: Less than 50% stenosis of the carotid bifurcation. Criteria for Assigning % of Stenosis / Diameter reduction (Estimation based on the indirect measurements of the internal carotid artery velocities (ICA PSV). 1. Normal (no stenosis)=ICA PSV < 180 cm/s: ratio < 2.0: ICA EDV<40 cm/s. 2. Less than 50% stenosis=ICA PSV < 180 cm/s: ratio < 2.0: ICA EDV<40 cm/s. 3. 50 to 69% stenosis=ICA PSV of 180 to 230 cm/s: ration 2.0 ? 4.0: ICA EDV 40-100 cm/s. PSV 125-180 cm/sec and ICA/CCA PSV Ratio ? 2.0 is also consistent with 50-69% stenosis 4. Greater than 70% stenosis to near occlusion= ICA PSV > 230 cm/s: ratio > 4.0: ICA EDV > 100 cm/s. 5. Near occlusion= ICA PSV velocities may be low or undetectable: variable ratio and ICA EDV. 6. Total occlusion=unable to detect flow. [facility], , 09/15/2024 1:19 PM
--- NOTE | 2024-09-15 13:47 | P.CNNES ---
<EncinasOphelia - Last Filed: 09/15/24 15:37> History of Present Illness Consult date: 09/15/24 Requesting physician: Teto Pascual Reason for Consult: Abnormal MRI. Acute/subacute ischemic stroke History of Present Illness: Patient is an 84-year-old male with atrial fibrillation, hyperlipidemia presented to the ED last night after MRI called him that he should be evaluated. Patient had the MRI earlier yesterday. The patient mention that on 8 he had been concerned about the possibility of dementia, which is why his neurologist had ordered an MRI. When they went home after the test they received a call that the patient should go to the ED for further evaluation. The brain MRI had shown few bilateral frontal lobe foci of acute/subacute ischemia the distribution could represent embolic phenomenon, advanced nonspecific white matter changes likely related to small vessel ischemic disease. Patient is a poor historian. Compliance with home meds(gold Xarelto) is questionable. Patient seen today under neurological consultation for abnormal MRI. Vital signs are within normal limits WBC 3.67, hemoglobin 10.5, MCV 105.8 Past Medical History Past Medical History: Atrial Fibrillation, GERD/Reflux, Hyperlipidemia, Osteoarthritis (OA) Additional Past Medical History / Comment(s): RECENT: SOB, ESPECIALLY AT NIGHT (POSTITIVE STRESS TEST). MACROCYTIC ANEMIA History of Any Multi-Drug Resistant Organisms: None Reported Past Surgical History: Heart Catheterization, Orthopedic Surgery Additional Past Surgical History / Comment(s): ORTHO: RIGHT SHOULDER (ACCIDENT), LEFT ROTATOR CUFF, LEFT KNEE ARTHRO, COLONOSCOPY, Past Anesthesia/Blood Transfusion Reactions: No Reported Reaction Past Psychological History: No Psychological Hx Reported Smoking Status: Former smoker - Past Family History Mother Family Medical History: Neurologic Disorder Additional Family Medical History / Comment(s): ALZHEIMERS Medications and Allergies Home Medications Medication Instructions Recorded Confirmed Type Atorvastatin [Lipitor] 40 mg PO HS 08/15/15 09/15/24 History Multivitamins, Thera [Multivitamin] 1 tab PO DAILY 08/15/15 09/15/24 History Tamsulosin [Flomax] 0.4 mg PO HS 04/10/22 09/15/24 History Rivaroxaban [Xarelto] 20 mg PO W/SUPPER 04/21/23 09/15/24 History Epoetin Julian [Procrit] 40,000 unit INJ Q14D 09/15/24 09/15/24 History Mirtazapine [Remeron] 15 mg PO HS 09/15/24 09/15/24 History Omeprazole Magnesium [PriLOSEC OTC] 20 mg PO DAILY 09/15/24 09/15/24 History Allergies Allergy/AdvReac Type Severity Reaction Status Date / Time No Known Allergies Allergy Verified 09/15/24 09:47 Physical Examination - Vital Signs Vital Signs: Vital Signs Temp Pulse Resp BP Pulse Ox 09/15/24 07:53 97.9 F 72 18 127/81 97 09/15/24 06:00 98.3 F 93 18 137/79 96 09/15/24 05:00 71 18 114/73 95 09/15/24 03:00 69 20 109/68 95 09/15/24 02:00 73 18 112/67 97 09/14/24 21:58 98.2 F 64 18 142/83 96 Intake and Output 09/14/24 09/15/24 09/15/24 22:59 06:59 14:59 Other: Weight 76.204 kg General: no distress, lying in bed Neuro: Patient is awake alert and oriented x 3. Extraocular movements intact no nystagmus, face is symmetric, facial sensation normal. On muscle strength testing, there is 4/5 in all 4 extremities, tremors b/l arms Deep tendon reflexes are symmetric 1 at the biceps, brachioradialis, knees and plantars indeterminate Sensory to touch is equal Cerebellar function showed dysmetria for [id number] testing, dysdiadochokinesia Results - Laboratory Findings CBC and BMP: 09/14/24 22:38 09/14/24 22:38 Abnormal Lab Findings: Abnormal Labs 09/14/24 09/14/24 22:38 22:38 WBC 3.67 L RBC 2.94 L Hgb 10.5 L Hct 31.1 L MCV 105.8 H MCH 35.7 H Eosinophils # 0.00 L BUN 22 H Glucose 111 H Total Bilirubin 1.4 H Assessment and Plan Assessment: Acute/subacute embolic stroke Atrial fibrillation with controlled ventricular rate, Compliance with home med Xarelto is questionable Hyperlipidemia Former tobacco dependence Plan: Brain MRI had shown few bilateral frontal lobe foci of acute/subacute ischemia the distribution could represent embolic phenomenon, advanced nonspecific white matter changes likely related to small vessel ischemic disease. Echocardiogram shows EF 50%, RVSP 38, mild to moderate aortic regurgitation Carotid Doppler ordered, that shows less than 50% stenosis of the carotid bifurcation bilaterally Aspirin 325 mg p.o. once given in the ED Continue aspirin 81 mg p.o. daily Med resumed atorvastatin 40 mg p.o. at bedtime Obtain TSH, vitamin B12, folate, A1c, lipid panel PT, OT and speech therapy consulted Neurochecks every 4 hours DVT prophylaxis: Xarelto 20 mg p.o. daily Risk of dual antiplatelet outweights benefits, bleeding risk Continue telemetry monitoring Dictation was produced using Vee24 dictation software. please excuse any grammatical, word or spelling errors. Ophelia Encinas MD PGY-2 IM <Solis Phillips - Last Filed: 09/15/24 17:07> Physical Examination - Vital Signs Vital Signs: Vital Signs Temp Pulse Resp BP Pulse Ox 09/15/24 16:13 84 20 132/89 96 09/15/24 12:35 86 18 127/82 09/15/24 10:10 75 20 144/78 97 09/15/24 07:53 97.9 F 72 18 127/81 97 09/15/24 06:00 98.3 F 93 18 137/79 96 09/15/24 05:00 71 18 114/73 95 09/15/24 03:00 69 20 109/68 95 09/15/24 02:00 73 18 112/67 97 09/14/24 21:58 98.2 F 64 18 142/83 96 Results - Laboratory Findings CBC and BMP: 09/14/24 22:38 09/14/24 22:38 Abnormal Lab Findings: Abnormal Labs 09/14/24 09/14/24 22:38 22:38 WBC 3.67 L RBC 2.94 L Hgb 10.5 L Hct 31.1 L MCV 105.8 H MCH 35.7 H Eosinophils # 0.00 L BUN 22 H Glucose 111 H Total Bilirubin 1.4 H Assessment and Plan Assessment: This is an 84-year-old gentleman with underlying history of confusion and being worked up for dementia by his outpatient neurologist who ordered MRI of the brain as an outpatient shows pupil stroke and the patient was asked to come to the hospital. Patient denies of any focal deficit. Per the patient about 2 to 3 days ago patient found one of his Xarelto medication that he uses for atrial fibrillation on the ground and he never took it but states that for the most part he is compliant with medication. Possible to probable his embolic stroke is due to noncompliance or missing a few of his anticoagulation leading to embolic stroke. Carotid duplex is negative for any significant stenosis Underlying history of confusion at baseline and being worked up for dementia. Family history of Alzheimer's dementia Plan: In addition to his Xarelto we added aspirin 81 mg daily. Patient and his were counseled on medication compliance. Pending Lipid panel TSH is within normal limits Recommend the patient to follow-up with his outpatient neurologist Dr. Baptiste within 2 to 3 weeks He needs detailed memory testing/neuropsych evaluation for evaluation of dementia. If lab workup are unremarkable then patient is cleared from a neurology perspective I personally examined the patient reviewed the labs and image. I agree with residents assessment and plan. Solis Phillips M.D. Dr. Chang will resume neurology service tomorrow A.M. and then Dr. Rodriguez will resume this Wednesday A.M. Time with Patient: Less than 30
[2024-09-15] MEDS: PSYLLIUM HUSK 100% 6 GM PACKET PO SCH (13:48)
--- NOTE | 2024-09-15 19:27 | P.HPIM ---
History of Present Illness H&P Date: 09/15/24 Chief Complaint: Decreasing memory Pleasant 84-year-old patient who follows with Dr. Parish edwards. Patient is accompanied by his in the ER. Chronic medical conditions include atrial fibrillation, GERD, hyperlipidemia, osteoarthritis, macrocytic anemia. gives a history that she was concerned about patient developing dementia. And she had approached Dr. Edwards for same in May. The current appointment with neurologist Dr. Baptiste in July. Following which MRI was done yesterday. Few bilateral frontal lobe foci of acute/subacute ischemia were reported. Hence patient was sent to the ER. Patient denies any focal symptoms. No weakness in the limbs. No change in speech no headaches no change in vision. Patient last Wednesday was at the [place] office of Dr. Baldwin. He stopped patient's Lopressor. Review of systems: GEN.: None EYES: None HEENT: None NECK: None RESPIRATORY: None CARDIOVASCULAR: None GASTROINTESTINAL: None GENITOURINARY: None MUSCULOSKELETAL: Some joint pains LYMPHATICS: None HEMATOLOGICAL: None PSYCHIATRY: Forgetful NEUROLOGICAL: None Social history: Patient smoked a pack a day for 37 years stopped about 20 years ago. Used to be a customer service representative teacher. No alcohol history Physical examination: VITAL SIGNS: 97.9, 72, 18, 127 x 81, 97% room air GENERAL: BMI 24.1, reclining bed awake comfortable. EYES: Pupils equal. Conjunctiva kate l. HEENT: External appearance of nose and ears normal, oral cavity grossly normal. NECK: JVD not raised; masses not palpable. HEART: First and second heart sounds are normal; no edema. LUNGS: Respiratory rate normal; clear to auscultation. ABDOMEN: Soft, nontender, liver spleen not palpable, no masses palpable. PSYCH: Patient is forgetful but able to hold a conversation l. MUSCULOSKELETAL:No Clubbing/cyanosis;muscles-grossly intact. OA in many joints NEUROLOGICAL: Cranial nerves grossly intact; no facial asymmetry, power and sensation grossly intact. LYMPHATICS: No lymph nodes palpable in the axilla and neck INVESTIGATIONS, reviewed in the clinical context: September 14: White count 3.6 hemoglobin 10.5 MCV 105.8 platelets 172 potassium 4.4 BUN 22 creatinine 1.1 AST 28 ALT 17 TSH 1.17 EKG tracing personally reviewed by me-right bundle anju block. Sinus rhythm. Chest x-ray film personally reviewed by me-hyperinflation. Brain MRI: [September 14]: Few bilateral frontal lobe foci of acute/subacute ischemia. Assessment plan: - Acute/subacute acute bilateral frontal lobe foci of ischemia. Suggestive of embolic. The MRI was scheduled because the patient declines laying memory been going on for few months. Patient did not have any acute presentation of focal weakness speech vision etc. Frontal lobe strokes in multiple areas will affect more social aspects. Telemetry. 2D echo. Carotid Doppler. Aspirin. In addition to Xarelto. Lipitor. 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 - BPH Flomax 0.4 mg nightly - Paroxysmal atrial fibrillation with a prior history of ablation a while ago Xarelto 20 mg nightly - GERD Prilosec 20 mg a day - Chronic insomnia Remeron 15 mg nightly - Chronic macrocytic anemia Epoetin 40,000 units every 2 weeks - Hyperlipidemia Lipitor 40 mg nightly - DNR. - Leeann is the medical power of finance attorney - For outpatient neuropsychiatric testing with neurologist. Care was discussed in detail with the patient and . 2D echo. Carotid Doppler. Neurology consulted. Past Medical History Past Medical History: Atrial Fibrillation, GERD/Reflux, Hyperlipidemia, Osteoarthritis (OA) Additional Past Medical History / Comment(s): RECENT: SOB, ESPECIALLY AT NIGHT (POSTITIVE STRESS TEST). MACROCYTIC ANEMIA History of Any Multi-Drug Resistant Organisms: None Reported Past Surgical History: Heart Catheterization, Orthopedic Surgery Additional Past Surgical History / Comment(s): ORTHO: RIGHT SHOULDER (ACCIDENT), LEFT ROTATOR CUFF, LEFT KNEE ARTHRO, COLONOSCOPY, Past Anesthesia/Blood Transfusion Reactions: No Reported Reaction Past Psychological History: No Psychological Hx Reported Smoking Status: Former smoker - Past Family History Mother Family Medical History: Neurologic Disorder Additional Family Medical History / Comment(s): ALZHEIMERS Medications and Allergies Home Medications Medication Instructions Recorded Confirmed Type Atorvastatin [Lipitor] 40 mg PO HS 08/15/15 09/15/24 History Multivitamins, Thera [Multivitamin] 1 tab PO DAILY 08/15/15 09/15/24 History Tamsulosin [Flomax] 0.4 mg PO HS 04/10/22 09/15/24 History Rivaroxaban [Xarelto] 20 mg PO W/SUPPER 04/21/23 09/15/24 History Epoetin Julian [Procrit] 40,000 unit INJ Q14D 09/15/24 09/15/24 History Mirtazapine [Remeron] 15 mg PO HS 09/15/24 09/15/24 History Omeprazole Magnesium [PriLOSEC OTC] 20 mg PO DAILY 09/15/24 09/15/24 History Allergies Allergy/AdvReac Type Severity Reaction Status Date / Time No Known Allergies Allergy Verified 09/15/24 09:47 Physical Exam Vitals: Vital Signs Temp Pulse Resp BP Pulse Ox 09/15/24 18:35 97.9 F 92 22 128/77 97 09/15/24 16:13 84 20 132/89 96 09/15/24 12:35 86 18 127/82 09/15/24 10:10 75 20 144/78 97 09/15/24 07:53 97.9 F 72 18 127/81 97 09/15/24 06:00 98.3 F 93 18 137/79 96 09/15/24 05:00 71 18 114/73 95 09/15/24 03:00 69 20 109/68 95 09/15/24 02:00 73 18 112/67 97 09/14/24 21:58 98.2 F 64 18 142/83 96 Results CBC & Chem 7: 09/14/24 22:38 09/14/24 22:38 Labs: Abnormal Lab Results - Last 24 Hours (Table) 09/14/24 09/14/24 Range/Units 22:38 22:38 WBC 3.67 L (4.50-10.00) 10*3/uL RBC 2.94 L (4.40-5.60) 10*6/uL Hgb 10.5 L (13.0-17.0) g/dL Hct 31.1 L (39.6-50.0) % MCV 105.8 H (80.0-97.0) fL MCH 35.7 H (27.0-32.0) pg Eosinophils # 0.00 L (0.04-0.35) 10*3/uL BUN 22 H (9-20) mg/dL Glucose 111 H (74-99) mg/dL Total Bilirubin 1.4 H (0.2-1.3) mg/dL
[2024-09-15] MEDS: MIRTAZAPINE 15 MG TAB PO SCH (19:48)
[2024-09-15] MEDS: TAMSULOSIN 0.4 MG CAP.ER.24H PO SCH (19:48)
[2024-09-15] MEDS: ATORVASTATIN 40 MG TAB PO SCH (19:49)
[2024-09-16] MEDS: HALOPERIDOL LACTATE 5 MG/ML 1 ML VIAL IVP STA ×2 (01:03→07:05)
[2024-09-16] MEDS: ACETAMINOPHEN TAB 500 MG TAB PO PRN (04:00)
[2024-09-16] MEDS ORDERED: ASPIRIN 325 MG TAB PO SCH (09:00)
--- NOTE | 2024-09-16 09:13 | P.CRDCN ---
History of Present Illness Consult date: 09/16/24 Reason for Consult (text): Possible embolic strokes. Atrial fibrillation history. History of present illness: This is an 84-year-old male patient of Dr. Baldwin with past medical history of paroxysmal atrial fibrillation status post radiofrequency ablation on Xarelto, mixed hyperlipidemia, chronic dyspnea on exertion, coronary artery disease stable. We have been asked to evaluate the patient for possible embolic strokes with history of atrial fibrillation. Patient is undergoing workup with Dr. Saunders for developing dementia. Patient had an outpatient MRI performed yesterday which revealed few bilateral frontal lobe foci of acute/subacute ischemia and the patient was sent to the emergency center. Patient had no weaknesses on either side, no change in speech, no headache. Patient was last seen in the office with Dr. Baldwin on 09/12/2024 and at that time he discontinued metoprolol succinate 25 mg and patient had been maintaining a sinus rhythm. Due to patient's significant confusion and combativeness due to , nursing requested that patient not be awakened. Chart has been reviewed this morning and patient will be examined later in the day when he is awake. Blood pressure 122/77, heart rate 92, pulse ox 96% on room air. Patient has been afebrile. Patient is seen today in the emergency center waiting for a bed on the cardiac stepdown unit. -EKG: Sinus rhythm with right bundle branch block 82 bpm. -Chest x-ray: Left lower lobe airspace opacities correlate for developing pneumonia. -Echocardiogram reveals EF 50%, RVSP 38, mild to moderate aortic regurgitation. No pericardial effusion. -Carotid duplex: Less than 50% stenosis of the carotid bifurcation bilaterally. -Abdominal x-ray reveals nonspecific bowel gas pattern no evidence of acute process. -Laboratory studies: WBC 3.6, hemoglobin 10.5. Electrolytes are normal. BUN 22, creatinine 1.1. Troponin negative x 1. TSH 1.17. -Home cardiac medications: Atorvastatin 40 mg at bedtime, Xarelto 20 mg with supper. -Cardiac catheterization performed in 2015 revealed normal EF, mild triple- vessel disease. -Dobutamine stress test performed 09/09/2022 revealed EF of 52% and normal study. -Event monitor performed from 589820/24 revealed baseline sinus mechanism with first-degree AV block and intraventricular conduction delay. Average rate 76 bpm with minimum 55 and maximum 138. Ventricular ectopic activity burden was 8%. Symptoms of dyspnea, rapid heartbeat correlated with sinus mechanism. -RFA performed for atrial fibrillation in 04/26/2023. Review Of Systems: At the time of my exam: CONSTITUTIONAL: Denies fever or chills. HEENT: Denies blurred vision, vision changes, or eye pain. Denies hemoptysis CARDIOVASCULAR: Denies chest pain. Denies orthopnea. Denies PND. Denies palpitations RESPIRATORY: Denies shortness of breath. GASTROINTESTINAL: Denies abdominal pain. Denies nausea or vomiting. HEMATOLOGIC: Denies bleeding disorders. GENITOURINARY: Denies any blood in urine. SKIN: Denies puritis. Denies rash. Physical examination: Gen: This is an 84-year-old male in no acute distress VS: reviewed HEENT: Head is atraumatic, normocephalic. Pupils equal, round. Sclerae is anicteric. NECK: Supple. No JVD. LUNGS: Clear to auscultation. No wheezes or rhonchi. No intercostal retractions. HEART: Regular rate and rhythm. 2/6 systolic ejection murmur. ABDOMEN: Soft No tenderness. EXTREMITIES: No pedal edema. No calf tenderness. Assessment: Paroxysmal atrial fibrillation status post radiofrequency ablation on Xarelto Acute/subacute bilateral frontal lobe foci of ischemia Memory loss undergoing outpatient workup for dementia Possible pneumonia left lower lobe Hyperlipidemia Chronic dyspnea on exertion Mild triple-vessel CAD Plan: Continue patient's home cardiac medications There is concern that patient may have missed a couple doses of his home medications. He has been maintained on Xarelto and at this time no clear evidence of failure of Xarelto. Following discharge, patient will have follow- up with Dr. Baldwin and Watchman procedure may be considered at that time. Further recommendations to follow based upon clinical course Thank you kindly for this consultation. Nurse practitioner note has been reviewed, I agree with documented findings and plan of care. Patient was seen and examined. Past Medical History Past Medical History: Atrial Fibrillation, GERD/Reflux, Hyperlipidemia, Osteoarthritis (OA) Additional Past Medical History / Comment(s): RECENT: SOB, ESPECIALLY AT NIGHT (POSTITIVE STRESS TEST). MACROCYTIC ANEMIA History of Any Multi-Drug Resistant Organisms: None Reported Past Surgical History: Heart Catheterization, Orthopedic Surgery Additional Past Surgical History / Comment(s): ORTHO: RIGHT SHOULDER (ACCIDENT), LEFT ROTATOR CUFF, LEFT KNEE ARTHRO, COLONOSCOPY, Past Anesthesia/Blood Transfusion Reactions: No Reported Reaction Past Psychological History: No Psychological Hx Reported Smoking Status: Former smoker Past Alcohol Use History: None Reported Additional Past Alcohol Use History / Comment(s): SMOKE: QUIT, 1999; OFF AND ON FOR MANY YEAR; PPD-1. Past Drug Use History: None Reported - Past Family History Mother Family Medical History: Neurologic Disorder Additional Family Medical History / Comment(s): ALZHEIMERS Medications and Allergies Home Medications Medication Instructions Recorded Confirmed Type Atorvastatin [Lipitor] 40 mg PO HS 08/15/15 09/15/24 History Multivitamins, Thera [Multivitamin] 1 tab PO DAILY 08/15/15 09/15/24 History Tamsulosin [Flomax] 0.4 mg PO HS 04/10/22 09/15/24 History Rivaroxaban [Xarelto] 20 mg PO W/SUPPER 04/21/23 09/15/24 History Epoetin Julian [Procrit] 40,000 unit INJ Q14D 09/15/24 09/15/24 History Mirtazapine [Remeron] 15 mg PO HS 09/15/24 09/15/24 History Omeprazole Magnesium [PriLOSEC OTC] 20 mg PO DAILY 09/15/24 09/15/24 History Allergies Allergy/AdvReac Type Severity Reaction Status Date / Time No Known Allergies Allergy Verified 09/15/24 09:47 Physical Exam Vitals: Vital Signs Temp Pulse Pulse Resp BP BP Pulse Ox 09/16/24 04:00 92 20 122/77 96 09/16/24 00:00 97.9 F 81 18 107/69 98 09/15/24 19:52 98.6 F 94 18 99/78 99 09/15/24 18:35 97.9 F 92 22 128/77 97 09/15/24 16:13 84 20 132/89 96 09/15/24 12:35 86 18 127/82 09/15/24 10:10 75 20 144/78 97 09/15/24 07:53 97.9 F 72 18 127/81 97 Intake and Output 09/15/24 09/15/24 09/16/24 14:59 22:59 06:59 Intake Total 500 Output Total 300 Balance 200 Intake: Oral 500 Output: Urine 300 Other: Voiding Method Urinal Urinal # Voids 2 Weight 76.204 kg Results 09/14/24 22:38 09/14/24 22:38 Current Medications Generic Name Dose Route Start Last Admin Trade Name Allen PRN Reason Stop Dose Admin Acetaminophen 500 mg 09/15/24 12:51 09/16/24 04:00 Acetaminophen Tab 500 Mg Tab PO 500 mg Q6HR PRN Administration Fever and/ or Pain Aspirin 81 mg 09/16/24 09:00 Aspirin 81 Mg PO DAILY SIVA Atorvastatin Calcium 40 mg 09/15/24 21:00 09/15/24 19:49 Atorvastatin 40 Mg Tab PO 40 mg HS SIVA Administration Famotidine 20 mg 09/15/24 09:00 09/15/24 19:49 Famotidine 20 Mg Tab PO 20 mg BID SIVA Administration Sodium Chloride 1,000 mls @ 20 mls/hr 09/15/24 00:30 09/15/24 23:26 Saline 0.9% IV Not Given .Q24H SIVA Mirtazapine 15 mg 09/15/24 21:00 09/15/24 19:48 Mirtazapine 15 Mg Tab PO 15 mg HS SIVA Administration Multivitamins 1 each 09/15/24 11:45 09/15/24 12:51 Multivitamins, Thera 1 Each Tab PO 1 each DAILY SIVA Administration Pantoprazole Sodium 20 mg 09/15/24 09:00 09/15/24 08:17 Pantoprazole 40 Mg Tablet PO 20 mg QAM SIVA Administration Pantoprazole Sodium 40 mg 09/15/24 11:45 09/16/24 05:02 Pantoprazole 40 Mg Tablet PO Not Given [facility] Psyllium Hydrophilic Mucilloid 6 gm 09/15/24 13:00 09/15/24 19:49 Psyllium Husk 100% 6 Gm Packet PO 6 gm BID SIVA Administration Rivaroxaban 20 mg 09/15/24 09:00 09/15/24 08:17 Rivaroxaban 20 Mg Tab PO 20 mg DAILY SIVA Administration Protocol Tamsulosin HCl 0.4 mg 09/15/24 21:00 09/15/24 19:48 Tamsulosin 0.4 Mg Cap.Er.24h PO 0.4 mg HS SIVA Administration Intake and Output 09/15/24 09/15/24 09/16/24 14:59 22:59 06:59 Intake Total 500 Output Total 300 Balance 200 Intake: Oral 500 Output: Urine 300 Other: Voiding Method Urinal Urinal # Voids 2 Weight 76.204 kg Patient Weight 09/16/24 06:59 Weight 76.204 kg 09/14/24 22:38 09/14/24 22:38
[2024-09-16] MEDS: ASPIRIN 81 MG PO SCH (10:00)
--- NOTE | 2024-09-16 10:20 | P.PN ---
Subjective Progress Note Date: 09/16/24 The patient is an 84-year-old male who is seen in neurologic follow-up, and cross coverage for Dr. Solis Phillips, in collaboration with Karin Joya, via teleneurology. The patient's chart has been reviewed. The patient was seen in consultation by Dr. Phillips. Please review his note for further details regarding presenting complaint and past medical history. The patient's is present at the bedside today. She states that the patient had his MRI performed because of memory difficulties. There were no reported focal or lateralizing neurological deficits. Patient reportedly has a history of atrial fibrillation and underwent ablation. He continued to be prescribed Xarelto. According to the patient's , he may have missed 1 dose of his Xarelto, as a pill was found on the floor. The patient does follow with a refrigerator cabinetmaker and just recently started seeing a neurologist. Carotid Doppler, 2D echo and MRI results were discussed with the patient and his . Objective - Vital Signs Vital signs: Vital Signs Temp 97.9 F 09/16/24 00:00 Pulse 92 09/16/24 04:00 Resp 20 09/16/24 04:00 BP 122/77 09/16/24 04:00 Pulse Ox 96 09/16/24 04:00 FiO2 Intake & Output 09/15/24 09/16/24 09/16/24 18:59 06:59 18:59 Intake Total 500 Output Total 300 Balance 200 Weight 76.204 kg Intake: Oral 500 Output: Urine 300 Other: Voiding Method Urinal # Voids 2 - Exam General: The patient is reclining in the bed. He is in no acute distress. HEENT: Head is atraumatic, normocephalic. Fundus not visualized. There is no scleral icterus. Mucous membranes are moist. Neurological examination Mental status: The patient is awake and alert. He is somewhat confused. Cranial nerves: 2-12 grossly intact - Labs CBC & Chem 7: 09/14/24 22:38 09/14/24 22:38 Assessment and Plan Assessment: 1. Bilateral frontal lobe, embolic infarcts, per MRI of the brain. 2D echocardiogram and carotid Doppler testing has been completed. There is no evidence of significant stenosis of either carotid artery. 2D echocardiogram reveals no evidence of vegetation, or thrombus. Ejection fraction is normal. 2. History of atrial fibrillation, status post ablation 3. History of hyperlipidemia Plan: 1. Xarelto should be changed to Eliquis for further stroke prevention 2. Patient is advised to follow-up with his refrigerator cabinetmaker 3. Patient is advised to follow-up with his neurologist for further evaluation regarding dementia and stroke risk 4. Resume atorvastatin 40 mg daily for further stroke prevention 5. The patient is neurologically stable for discharge Time with Patient: Greater than 30 (35 minutes were spent caring for this patient today including, obtaining an interim history, examining the patient, reviewing imaging, chart documentation, labs and creating this note)
[2024-09-16 11:41] VITALS: BP 133/86; PULSE 80; RESP 14; TEMP 98.4
[2024-09-16 11:54] LABS: Vitamin B12 397.0 pg/mL (200.0-944.0)
--- NOTE | 2024-09-16 14:26 | P.DS ---
Providers Date of admission: 09/15/24 00:22 Expected date of discharge: 09/16/24 Attending physician: Elroy Fernandez Consults: 09/15/24 00:20 Consult Physician Routine Consulting Provider: Solis Phillips Consult Reason/Comments: Abnormal MRI. Acute/subacute ischemic stroke Do you want consulting provider notified?: Yes 09/15/24 06:32 Consult Physician Routine Consulting Provider: Casey Ha Consult Reason/Comments: possible embolic strokes. Atrial fibrillation history Do you want consulting provider notified?: Yes Primary care physician: [facility] Course: Chief Complaint: Decreasing memory Pleasant 84-year-old patient who follows with Dr. Parish pedraza. Patient is accompanied by his in the ER. Chronic medical conditions include atrial fibrillation, GERD, hyperlipidemia, osteoarthritis, macrocytic anemia. gives a history that she was concerned about patient developing dementia. And she had approached Dr. Pedraza for same in May. The current appointment with neurologist Dr. Baptiste in July. Following which MRI was done yesterday. Few bilateral frontal lobe foci of acute/subacute ischemia were reported. Hence patient was sent to the ER. Patient denies any focal symptoms. No weakness in the limbs. No change in speech no headaches no change in vision. Patient last Wednesday was at the public safety teacher office of Dr. Baldwin. He stopped patient's Lopressor. September 16: No change in clinical status. Patient okayed by neurology to be discharged. Xarelto was being switched over to his Eliquis. Patient to follow- up with Dr. Baptiste for further neuropsychiatry testing. Discussed with the . Questions answered. Discussed with nurse Discussion and discharge planning more than 35 minutes Social history: Patient smoked a pack a day for 37 years stopped about 20 years ago. Used to be a health and safety representative. No alcohol history Physical examination: VITAL SIGNS: 98.4, 80, 14, 1 3386, 97% room air GENERAL: Comfortable EYES: Pupils equal. Conjunctiva kate l. HEENT: External appearance of nose and ears normal, oral cavity grossly normal. NECK: JVD not raised; masses not palpable. HEART: First and second heart sounds are normal; no edema. LUNGS: Respiratory rate normal; clear to auscultation. ABDOMEN: Soft, nontender, liver spleen not palpable, no masses palpable. PSYCH: Patient is forgetful but able to hold a conversation l. MUSCULOSKELETAL:No Clubbing/cyanosis;muscles-grossly intact. OA in many joints NEUROLOGICAL: Cranial nerves grossly intact; no facial asymmetry, power and sensation grossly intact. INVESTIGATIONS, reviewed in the clinical context: 2D echo: EF 50%. No thrombus reported. Mild to moderate AR. Carotid Doppler: No significant stenosis B12 397. Folate 32.9. TSH 1.17 September 14: White count 3.6 hemoglobin 10.5 MCV 105.8 platelets 172 potassium 4.4 BUN 22 creatinine 1.1 AST 28 ALT 17 TSH 1.17 EKG tracing personally reviewed by me-right bundle anju block. Sinus rhythm. Chest x-ray film personally reviewed by me-hyperinflation. Brain MRI: [September 14]: Few bilateral frontal lobe foci of acute/subacute ischemia. Assessment plan: - Acute/subacute acute bilateral frontal lobe foci of ischemia. Suggestive of embolic. The MRI was scheduled because the patient declines laying memory been going on for few months. Patient did not have any acute presentation of focal weakness speech vision etc. Frontal lobe strokes in multiple areas will affect more social aspects. 2D echo-no thrombus reported. Carotid Doppler with no significant stenosis. Aspirin. I Xarelto being switched over to Eliquis. Lipitor. 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 - Mild to moderate aortic regurgitation. Moderate aortic dilatation at level of the sinuses of Valsalva. - BPH Flomax 0.4 mg nightly - Paroxysmal atrial fibrillation with a prior history of ablation a while ago Xarelto 20 mg nightly - GERD Prilosec 20 mg a day - Chronic insomnia Remeron 15 mg nightly - Chronic macrocytic anemia Epoetin 40,000 units every 2 weeks - Hyperlipidemia Lipitor 40 mg nightly - DNR. - Leeann is the medical power of civil litigation attorney - Disposition: Home Past Medical History Past Medical History: Atrial Fibrillation, GERD/Reflux, Hyperlipidemia, Osteoarthritis (OA) Additional Past Medical History / Comment(s): RECENT: SOB, ESPECIALLY AT NIGHT (POSTITIVE STRESS TEST). MACROCYTIC ANEMIA History of Any Multi-Drug Resistant Organisms: None Reported Past Surgical History: Heart Catheterization, Orthopedic Surgery Additional Past Surgical History / Comment(s): ORTHO: RIGHT SHOULDER (ACCIDENT), LEFT ROTATOR CUFF, LEFT KNEE ARTHRO, COLONOSCOPY, Past Anesthesia/Blood Transfusion Reactions: No Reported Reaction Past Psychological History: No Psychological Hx Reported Smoking Status: Former smoker Plan - Discharge Summary New Discharge Prescriptions: New Psyllium Husk 100% [Metamucil Packet] 6 gm PO BID #60 packet Apixaban [Eliquis] 5 mg PO BID #90 tab Continue Atorvastatin [Lipitor] 40 mg PO HS Multivitamins, Thera [Multivitamin (formulary)] 1 tab PO DAILY Tamsulosin [Flomax] 0.4 mg PO HS Mirtazapine [Remeron] 15 mg PO HS Omeprazole Magnesium [PriLOSEC OTC] 20 mg PO DAILY Epoetin Julian [Procrit] 40,000 unit INJ Q14D Discontinued Rivaroxaban [Xarelto] 20 mg PO W/SUPPER Discharge Medication List Atorvastatin [Lipitor] 40 mg PO HS 08/15/15 [History] Multivitamins, Thera [Multivitamin (formulary)] 1 tab PO DAILY 08/15/15 [History] Tamsulosin [Flomax] 0.4 mg PO HS 04/10/22 [History] Epoetin Julian [Procrit] 40,000 unit INJ Q14D 09/15/24 [History] Mirtazapine [Remeron] 15 mg PO HS 09/15/24 [History] Omeprazole Magnesium [PriLOSEC OTC] 20 mg PO DAILY 09/15/24 [History] Apixaban [Eliquis] 5 mg PO BID #90 tab 09/16/24 [Rx] Psyllium Husk 100% [Metamucil Packet] 6 gm PO BID #60 packet 09/16/24 [Rx] Follow up Appointment(s)/Referral(s): Marie Saunders MD [REFERRING] - 1 Week Cisco Pedraza DO [Primary Care Provider] - 1-2 days Discharge Disposition: HOME SELF-CARE
[2024-09-16 14:49] LABS: Cholesterol 102.00 mg/dL (0.00-200.00); HDL Cholesterol 42.10 mg/dL (40.00-60.00); LDL Cholesterol,Calculated 44.7 mg/dL (0.0-131.0); Triglycerides 75.80 mg/dL (0.00-149.00); VLDL Calculation 15.16 mg/dL (5.00-40.00)
== END 2024-09-16 11:55 | disposition home or self-care (01) | DRG 65 ==
LOC: EC 21:57 → 3SCARD 09-15 00:22
PROVIDERS: ADMIT Hospitalist; ATTEND Hospitalist
DX: I63.40 Cerebral infarction due to embolism of unspecified cerebral artery (principal); F02.82 Dementia in other diseases classified elsewhere, unspecified severity, with psychotic disturbance; F05 Delirium due to known physiological condition; Z66 Do not resuscitate; I48.0 Paroxysmal atrial fibrillation; G30.9 Alzheimer's disease, unspecified; D53.9 Nutritional anemia, unspecified; I65.23 Occlusion and stenosis of bilateral carotid arteries; I35.1 Nonrheumatic aortic (valve) insufficiency; E78.2 Mixed hyperlipidemia; N40.0 Benign prostatic hyperplasia without lower urinary tract symptoms; I25.10 Atherosclerotic heart disease of native coronary artery without angina pectoris; M19.90 Unspecified osteoarthritis, unspecified site; K21.9 Gastro-esophageal reflux disease without esophagitis; T45.516A Underdosing of anticoagulants, initial encounter; F51.04 Psychophysiologic insomnia; I45.9 Conduction disorder, unspecified; I44.0 Atrioventricular block, first degree; I45.10 Unspecified right bundle-branch block; Z79.01 Long term (current) use of anticoagulants; Z79.899 Other long term (current) drug therapy; Z87.891 Personal history of nicotine dependence; Z91.148 Patient's other noncompliance with medication regimen for other reason; X58.XXXA Exposure to other specified factors, initial encounter
CPT/HCPCS: 36415; 71046; 74019; 80053; 80061; 82550; 82607; 82746; 83036; 84443; 84484; 85025; 85610; 85730; 93005; 93306; 93880

== ENCOUNTER → 2024-09-14 | Outpatient (CLI) | payer MEDICARE ==
--- NOTE | 2024-09-14 19:55 | MR ---
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 COMPARISON: None. TECHNIQUE: Multi planar, multi sequence imaging was performed through the brain without administratio n of intravenous contrast. FINDINGS: Mild age-appropriate cerebral volume loss. Mild dilatation of the ventricular system which is appropr iate for levels from atrophy. Prominence of the peripheral sulci and basal cisterns related to atroph y. Approximately 3 foci of restricted diffusion involving the bilateral frontal lobes with correspond ing low ADC map. Consistent with acute/subacute ischemia. Other scattered bilateral frontal and parie alex subcortical and lebron-white matter junction T2/FLAIR hyperintense foci. There is corresponding T2 shine through on diffusion imaging. Patchy and confluent subcortical and periventricular white matter hyperintense T2/FLAIR signal. Addit ional central pushpa hyperintense signal. Intracranial arterial flow voids are maintained. Midline stru ctures show no abnormality. The susceptibility weighted images demonstrate approximately 4 foci of b looming artifact from prior hemorrhage within the right anterior frontal lobe and anterior right temp oral lobe from prior microhemorrhage. Incidental right cerebellar ventricle venous anomaly. The bone marrow signal is within normal limits. The paranasal sinuses and globes are unremarkable. IMPRESSION: 1. Few bilateral frontal lobe foci of acute/subacute ischemia. Distribution could represent embolic p henomenon. 2. Advanced nonspecific white matter changes, likely related to small vessel ischemic disease. A [place] critical message alert has been initiated for Marie Saunders MD via the [employer] 60 | Critical Results System on 09/14/2024 7:52 PM. This message alert has been sent to Marie real MD via the preferences provided by the clinician for the receipt of Radiology Critical Findings. Message ID [id number]. [facility], , 09/14/2024 7:53 PM"
== END | disposition home or self-care (01) ==
LOC: RADMRIMAIN 18:41
PROVIDERS: ATTEND Psychiatry & Neurology Neurology
DX: R90.82 White matter disease, unspecified (principal); G31.84 Mild cognitive impairment of uncertain or unknown etiology
CPT/HCPCS: 70551